=== PATIENT | female | born 1985 ===

== ENCOUNTER 2021-11-26 00:31 | Outpatient (CLI) | payer OTHER, SELFPAY ==
--- NOTE | 2021-11-26 08:15 | DI.MRI_ITS ---
Exam(s) MR LUMBAR SPINE WO EXAM: MR LUMBAR SPINE WO CLINICAL HISTORY: LEFT LUMBAR RADICULOPATHY, M54.16, EVAL CAUSE OF NEW L5 RADICULOPATHY. TECHNIQUE: Multiplanar multisequence MRI of the Lumbar spine was performed. COMPARISON: No exams were available for comparison FINDINGS: Bones: The last intervertebral disc space is designated the L5/S1 level for the numbering purpose of this examination. The vertebral body heights are well maintained. Alignment is satisfactory. The si gnal characteristics are unremarkable. Cord: The conus tip ends at the L1 level. It is of normal size and signal intensity. T12-L1: No disc herniations or bulges are present. No central spinal canal or neural foraminal stenos is. L1-2: No disc herniations or bulges are present. No central spinal canal or neural foraminal stenosis . L2-3: No disc herniations or bulges are present. No central spinal canal or neural foraminal stenosis . L3-4: There is a mild diffuse disc bulge. There is degenerative disc disease. No central spinal can al or neural foraminal stenosis. L4-5: There is a large disc herniation. It is mildly eccentric to the left. There does appear to be compression of both lateral recesses. There is compression of the left L5 nerve root. There is mil d narrowing of the central spinal canal. Facet arthropathy is present.There is mild narrowing of the left neural foramen. L5-S1: No disc herniations or bulges are present. No central spinal canal or neural foraminal stenosi s. Soft tissues: The visualized SI joints and sacrum are well maintained. The paraspinal soft tissues ar e unremarkable. Visualized abdominal organs: Unremarkable. IMPRESSION: 1. There is a large disc herniation at L4-L5. It is mildly eccentric to the left and compresses the left L5 nerve root. There is compression of the lateral recesses. 2. Degenerative changes at L3-4 and L4-L5. There is mild narrowing of the left L4-5 neural foramen. DATA REPOSITORY:
== END 2021-11-26 00:51 ==
PROVIDERS: Visit Provider Family Medicine
DX: M54.16 Radiculopathy, lumbar region (principal); M51.16 Intervertebral disc disorders with radiculopathy, lumbar region
CPT/HCPCS: 72148